=== PATIENT | male | born 1955 | race Caucasian/White ===

== ENCOUNTER 2021-01-14 09:23 | Emergency (ER) | payer BC, SELFPAY ==
[2021-01-14 09:30] VITALS: BP 150/87; PULSE 90; RESP 16; TEMP 37.4; O2SAT 99
--- NOTE | 2021-01-14 10:29 | ED.WOUNDLAC ---
HPI - Wound/Laceration General Chief Complaint: Wound/Laceration Stated Complaint: Head injury Time Seen by Provider: 01/14/21 10:00 Source: patient and RN notes reviewed Mode of arrival: ambulatory Limitations: no limitations History of Present Illness HPI narrative: Patient presents today complaint of a laceration to his right forehead. Around 11 PM last night, patient fell and struck his forehead on the concrete at his home while intoxicated. Denies loss of consciousness. Denies any additional symptoms currently. He is up-to-date on his tetanus vaccine. Takes no blood thinners. Does take a baby aspirin daily. Related Data Allergies Allergy/AdvReac Type Severity Reaction Status Date / Time No Known Allergies Allergy Verified 01/14/21 09:52 Review of Systems Review of Systems: CONSTITUTIONAL: Denies body aches, fever, chills, or sweats. EYES: Denies visual changes, redness, or discharge. ENT: Denies rhinorrhea, congestion, sore throat, or otalgia. CARDIOVASCULAR: Denies chest pain, palpitations, or edema. RESPIRATORY: Denies cough or dyspnea. GASTROINTESTINAL: Denies abdominal pain, nausea, vomiting, or diarrhea. GENITOURINARY: Denies dysuria or hematuria. SKIN: Denies rash, itching. + Laceration to right forehead MUSCULOSKELETAL: Denies back pain, joint pain, or myalgia. NEUROLOGIC: Denies headache, numbness, tingling, or weakness. PSYCH: Denies depression or anxiety. PMFSH Comments At time of signature, I have reviewed and agree with nursing past medical, surgical, social and family history unless otherwise noted. Please see nursing chart for further information. There is no relevant family history pertinent to the presenting complaint Exam Narrative: GENERAL: Well-appearing, well-nourished, and in no acute distress. HEAD: Normocephalic, atraumatic. EYES: EOMI. PERRL. No redness or drainage. Conjunctivae normal. ENT: Mucous membranes pink and moist. Nares clear. No rhinorrhea. TMs normal bilaterally. Throat normal. Uvula midline. NECK: Normal AROM. Supple. No lymphadenopathy. CHEST: No respiratory distress. EXTREMITIES: Normal range of motion. No edema. SKIN: Warm, dry, no rash. Capillary refill normal. Normal skin turgor. 2.5cm full thickness irregular laceration to the right forehead. No body irregularity noted. NEURO: No focal deficits. Alert and oriented x3. Gait steady. PSYCH: Normal affect. No signs of depression or anxiety. Course Vital Signs Vital signs: Vital Signs Temperature 99.3 F 01/14/21 09:30 Pulse Rate 90 01/14/21 09:30 Respiratory Rate 16 01/14/21 09:30 Blood Pressure 150/87 H 01/14/21 09:30 Pulse Oximetry 99 01/14/21 09:30 Temperature 99.3 F 01/14/21 09:30 Pulse Rate 90 01/14/21 09:30 Respiratory Rate 16 01/14/21 09:30 Blood Pressure 150/87 H 01/14/21 09:30 Pulse Oximetry 99 01/14/21 09:30 Reviewed. Pt has been instructed to follow up with his PCP regarding his elevated blood pressure today. Procedures Laceration Laceration 1: Date: 01/14/21 Time: 10:47 Site: face Side (If applicable): right (forehead) Size (cm): 2.5 Description: irregular Depth: simple, single layer ====== Skin Level ====== Skin layer closed with: steri strips (4) ====== Subcutaneous Layer ====== ====== Muscle Layer ====== ====== Tendon Layer ====== Dressing: Irrigated with 250 mL of sterile water. MDM - Wound/Laceration Differential Diagnosis Differential diagnosis: Likely laceration, abrasion and avulsion of skin Critical Care Time Critical Care Time Critical Care Time: No Discharge Plan Discharge Clinical Impression: Forehead laceration Qualifiers: Encounter type: initial encounter Qualified Code(s): S01.81XA - Laceration without foreign body of other part of head, initial encounter Patient Disposition: Home, Self-Care Condition: Stable Instructions: Antibioti
== END 2021-01-14 10:55 | disposition home or self-care (01) ==
PROVIDERS: Emergency Provider Nurse Practitioner; PCP Internal Medicine
DX: S01.81XA Laceration without foreign body of other part of head, initial encounter (principal); W18.30XA Fall on same level, unspecified, initial encounter; Y92.009 Unspecified place in unspecified non-institutional (private) residence as the place of occurrence of the external cause
CPT/HCPCS: 99213; G0463

== ENCOUNTER 2022-10-01 09:13 | Emergency (ER) | payer MEDICARE, SELFPAY ==
--- NOTE | ~2022-10-01 | XR_ITS ---
XR knee LT 3V DATE: 10/01/2022 09:36 INDICATION: Lateral knee pain after patient felt a pop TECHNIQUE: 3 views COMPARISON: None FINDINGS: There is distention of the suprapatellar bursa consistent with knee joint effusion. There is mild patellofemoral and lateral compartment osteoarthritis with minimal periarticular spurri ng. Joint spaces are relatively preserved. No fracture or dislocation, periosteal reaction or bone destruction, radiopaque intra-articular loose body or chondrocalcinosis is noted. Normal variant flabella is noted, with some adjacent apparently chronic small ossicles. IMPRESSION: Knee joint effusion; consider MR imaging for further evaluation as clinically appropriate Reviewed, dictated and finalized at location A.
[2022-10-01 09:22] VITALS: BP 151/80; PULSE 88; RESP 16; TEMP 37.4; O2SAT 99
--- NOTE | 2022-10-01 09:25 | ED.EXTPRO ---
HPI - Extremity Problem General Chief complaint: Extremity Problem,Nontraumatic Stated complaint: left knee pain Time Seen by Provider: 10/01/22 09:28 Source: patient Mode of arrival: ambulatory Limitations: no limitations History of Present Illness HPI Narrative: 66 y/o male presented for c/o left knee pain since last night at 2200. States he simply stood up and heard and felt a pop and has had pain to the lateral aspect since. Pain radiates up from the knee to the hip and down to mid lower leg. Denies decreased ROM, swelling, numbness, tingling or weakness. States bearing weight is almost intolerable, pain increases and feels like the leg will give out. Wore a knee brace at home for a few minutes. Has not taken anything. Utilized wheelchair on arrival. Related Data Home Medications Medication Instructions Recorded Confirmed alfuzosin 10 mg tablet,extended mg PO 10/01/22 release 24 hr atorvastatin 40 mg tablet mg 10/01/22 losartan 100 tablet 10/01/22 10/01/22 mg-hydrochlorothiazide 12.5 mg tablet testosterone cypionate 200 mg/mL mg 10/01/22 intramuscular oil Allergies Allergy/AdvReac Type Severity Reaction Status Date / Time No Known Allergies Allergy Verified 10/01/22 09:23 Review of Systems Review of Systems: CONSTITUTIONAL: Denies body aches, fever, chills EYES: Denies visual changes ENT: Denies rhinorrhea, congestion CARDIOVASCULAR: Denies chest pain, palpitations, or edema. RESPIRATORY: Denies cough or dyspnea. GASTROINTESTINAL: Denies abdominal pain, nausea, vomiting, or diarrhea. SKIN: Denies rash, itching, or wounds. MUSCULOSKELETAL: Reports left knee pain NEUROLOGIC: Denies headache, numbness, tingling, or weakness. All systems reviewed & are unremarkable except as noted in HPI and below PMFSH Past Medical History Medical History (Updated 10/01/22 @ 10:10 by Lilliam Manriquez APRN) Hypertension Retroperitoneal fibrosis Surgical History Surgical History (Updated 10/01/22 @ 09:38 by Lilliam Manriquez APRN) History of cholecystectomy History of lumbar fusion Hx of appendectomy Comments At time of signature, I have reviewed and agree with nursing past medical, surgical, social and family history unless otherwise noted. Please see nursing chart for further information. There is no relevant family history pertinent to the presenting complaint Exam Narrative: GENERAL: Well-appearing, appears in pain, no acute distress. HEAD: Normocephalic, atraumatic. CHEST: Speaks in full sentences. No respiratory distress. HEART: Regular rate and rhythm. Normal and equal peripheral pulses. EXTREMITIES: Left leg has normal strength and sensation, normal range of motion at knee, but endorses pain with movement. Pain illicited with both internal and external foot rotation. No swelling erythema or ecchymosis, No open wounds, or obvious deformity; alignment normal, pulse palpable and equal bilaterally, skin warm, dry, pink. Capillary refill less than 3 seconds. Gait unsteady appears left knee will give out. SKIN: Warm, dry, no rash. NEURO: Alert and oriented x3. PSYCH: Normal mood and affect Course Course Emergency Course: Patient is aware of diagnosis, understands and agrees to treatment plan. Anticipatory guidance given. Patient agrees to follow-up as directed and is aware of reasons to seek care at the emergency department. Portions of this record may have been created with voice recognition software Level of Care: Express Care Visit Vital Signs Vital signs: Vital Signs Temperature 99.3 F 10/01/22 09:22 Pulse Rate 88 10/01/22 09:22 Respiratory Rate 16 10/01/22 09:22 Blood Pressure 151/80 H 10/01/22 09:22 Pulse Oximetry 99 10/01/22 09:22 Temperature 99.3 F 10/01/22 09:22 Pulse Rate 88 10/01/22 09:22 Respiratory Rate 16 10/01/22 09:22 Blood Pressure 151/80 H 10/01/22 09:22 Pulse Oximetry 99 10/01/22 09:22 Reviewed Procedures
== END 2022-10-01 10:25 | disposition home or self-care (01) ==
PROVIDERS: Emergency Provider Nurse Practitioner Family; PCP Hospitalist
DX: M25.562 Pain in left knee (principal); I10 Essential (primary) hypertension
CPT/HCPCS: 73562; 99213; G0463; L1830